=== PATIENT | female | born 1960 | race Caucasian/White ===

== ENCOUNTER 2019-07-25 13:55 | Day surgery (SDC) | payer OTHER ==
[2019-07-24 12:27] LABS: CHLORIDE 104 mmol/L (98-107)
[2019-07-24 12:36] LABS: ALANINE AMINOTRANSFERASE 29 U/L (12-78); ALBUMIN 4.1 g/dL (3.4-5.0); ALKALINE PHOSPHATASE 63 U/L (45-117); ANION GAP 5 mmol/L (5-15); BILIRUBIN,TOTAL 0.4 mg/dL (0.2-1.0); CALCIUM 9.2 mg/dL (8.5-10.1); CREATININE 0.84 mg/dL (0.55-1.02); TOTAL PROTEIN 7.2 g/dL (6.4-8.2)
[~2019-07-25] VITALS: Ht 170.2 cm; Wt 64.2 kg
[~2019-07-25 13:55] MED LIST: ALPR0.5T5 PO; BUPIVACAINE/EPI 0.5% 1:200K ONE; ESTR-22 TD; METF500T17 PO; SUMA100T4 PO; TRET40CR6 TP; VENL150C6 PO; VENL75TA PO
[2019-07-25 14:18] VITALS: BP 156/96
[2019-07-25] MEDS ORDERED: LACTATED RINGERS 1,000 ML IV SCH (14:18)
[2019-07-25] MEDS ORDERED: hydrALAzine 20 MG/ML, 1ML IV PRN (14:30)
[2019-07-25] MEDS ORDERED: ONDANSETRON ODT 8 MG PO ONE (14:30)
[2019-07-25] MEDS ORDERED: FENTANYL PF 100 MCG/2ML IV PRN (14:30)
[2019-07-25] MEDS ORDERED: SCOPOLAMINE PATCH, 1.5MG PATCH.TD72 TD ONE (14:30)
[2019-07-25] MEDS ORDERED: HALOPERIDOL 5 MG/ML IV PRN (14:30)
[2019-07-25] MEDS ORDERED: HYDROmorphone 2 MG/ML, 1ML IVPush PRN (14:30)
[2019-07-25] MEDS ORDERED: LABETALOL 5MG/ML, 20ML IV PRN (14:30)
[2019-07-25] MEDS ORDERED: ACETAMINOPHEN 500 MG TABLET PO ONE (14:30)
[2019-07-25] MEDS ORDERED: PROMETHAZINE 25 MG/ML, 1ML IV PRN (14:30)
[2019-07-25] MEDS ORDERED: OXYcodone 5 MG/5 ML ORAL.SOL UDC PO PRN (14:30)
[2019-07-25] MEDS ORDERED: MEPERIDINE/PF 25MG/ML,1ML IVPush PRN (14:30)
[2019-07-25] MEDS ORDERED: GABAPENTIN 300 MG CAPSULE PO ONE (14:30)
[2019-07-25] MEDS ORDERED: MIDAZOLAM 1 MG/ML, 2ML ONE (14:31)
[2019-07-25] MEDS ORDERED: FENTANYL PF 100 MCG/2ML ONE (14:31)
[2019-07-25] MEDS ORDERED: ONDANSETRON 2MG/ML, 2ML ONE (15:19)
[2019-07-25] MEDS ORDERED: CEFAZOLIN 1,000 MG ONE (15:19)
[2019-07-25] MEDS ORDERED: PROPOFOL 10 MG/ML, 20ML ONE (15:19)
[2019-07-25] MEDS ORDERED: DEXAMETHASONE 4 MG/ML, 1ML ONE (15:19)
[2019-07-25] MEDS ORDERED: SUCCINYLCHOLINE 20 MG/ML, 10ML ONE (15:19)
[2019-07-25] MEDS ORDERED: GLYCOPYRROLATE 0.2MG/1ML, 5ML ONE (15:19)
[2019-07-25] MEDS ORDERED: ROCURONIUM 10MG/ML,5ML ONE (15:19)
[2019-07-25] MEDS ORDERED: NEOSTIGMINE 1 MG/ML, 10ML ONE (15:19)
== END 2019-07-25 17:45 | disposition home or self-care (01) ==
LOC: SDC 13:55 → EDSTATUS 16:00 → SDC 17:45
PROVIDERS: ATTEND Surgery
DX: N64.52 Nipple discharge (principal); D24.2 Benign neoplasm of left breast; E11.9 Type 2 diabetes mellitus without complications; F32.9 Major depressive disorder, single episode, unspecified; F41.9 Anxiety disorder, unspecified; G43.909 Migraine, unspecified, not intractable, without status migrainosus; Z79.84 Long term (current) use of oral hypoglycemic drugs; Z79.899 Other long term (current) drug therapy; Z88.1 Allergy status to other antibiotic agents; Z88.2 Allergy status to sulfonamides; Z80.3 Family history of malignant neoplasm of breast; Z90.49 Acquired absence of other specified parts of digestive tract
CPT/HCPCS: 19301; 36415; 80053; 82962; 88307; 93005; J0330; J0690; J1100; J2250; J2405; J2704; J3010; Q0162; J2710